=== PATIENT | male | born 1985 | race Two or more races ===

== ENCOUNTER 2017-09-30 10:21 | Emergency (ER) | payer OTHER ==
[~2017-09-30] VITALS: Ht 182.9 cm; Wt 86.8 kg
[~2017-09-30 10:21] MED LIST: AMOXICILLIN500 MG PO; IBUPROFEN200 M1 PO; KEFLEX500 MG PO; LIBRIUM25 MG PO; THIAMINE HCL100 MG PO; VISINE LONG LAS30 ML BOTH EYES
[2017-09-30 11:04] LABS: BASOPHIL (%) 0.5 % (0-1); EOSINOPHIL (%) 0.4 % (0-5); HEMATOCRIT 43.3 % (38.0-50.0); IMMATURE GRANULOCYTE (%) 0.5 % (0.0-0.7); LYMPHOCYTE (%) 25.2 % (15-42); MCH 31.8 PG (29.0-34.0); MCHC 34.6 G/DL (30.0-36.0); MCV 91.9 FL (86-99); MONOCYTE (%) 7.6 % (3-12); MONOCYTE COUNT 0.6 K/uL (0-0.8); NEUTROPHIL (%) 65.8 % (45-76); NEUTROPHIL COUNT 5.1 K/uL (1.8-6.4); PLATELET COUNT 303 K/uL (156-360); RBC DIS.WIDTH-CV 14.5 % (11.8-14.6); RBC DIS.WIDTH-SD 48.8 % (39-53); RED BLOOD COUNT 4.71 M/uL (4.00-5.50); WHITE BLOOD COUNT 7.7 K/uL (4.1-10.2)
[2017-09-30 11:12] LABS: CHLORIDE 103 mEq/L (99-109); POTASSIUM 4.3 mEq/L (3.7-5.4); SODIUM 142 mEq/L (136-147)
[2017-09-30 11:14] LABS: GLUCOSE 95 mg/dL (70-99)
[2017-09-30 11:15] LABS: APPEARANCE SL.HAZY ((CLEAR)); BILIRUBIN NEGATIVE; BLOOD NEGATIVE; COLOR AMBER ((YELLOW)); GLUCOSE (STRIP) NEGATIVE; KETONES NEGATIVE; LEUKOCYTES TRACE; NITRITE NEGATIVE; PROTEIN (STRIP) 30; SPECIFIC GRAVITY 1.024 (1.000-1.030)
[2017-09-30 11:18] LABS: CREATININE 0.8 mg/dL (0.6-1.3); GFR ESTIMATE (CALCULATED) > 59 mL/min/ (58.99-99999); UREA NITROGEN (BUN) 6 mg/dL (9-23)
[2017-09-30 11:18] LABS: BACTERIA NONE SEEN /HPF; EPITHELIAL CELLS RARE /HPF; HYALINE CASTS 0-5 /LPF; MUCUS 1+ /LPF; RED BLOOD CELLS 0-5 /HPF (0-5); UCUL ADDED? YES
[2017-09-30 12:51] VITALS: BP 142/90
== END 2017-09-30 12:52 | disposition home or self-care (01) ==
LOC: RME 10:21 → EME 10:21 → RME 12:52
PROVIDERS: Emergency Medicine
DX: N45.1 Epididymitis (principal); F17.200 Nicotine dependence, unspecified, uncomplicated
CPT/HCPCS: 76870; 80048; 81003; 85025; 87086; 99281; 99283; J0696

== ENCOUNTER 2017-11-27 12:27 | Emergency (ER) | payer OTHER ==
[~2017-11-27] VITALS: Ht 182.9 cm; Wt 83.7 kg
[2017-11-27 13:08] LABS: HEMATOCRIT 42.8 % (38.0-50.0); HEMOGLOBIN 15.9 G/DL (12.5-16.6); MCH 32.8 PG (29.0-34.0); MCHC 37.1 G/DL (30.0-36.0); MCV 88.2 FL (86-99); PLATELET COUNT 208 K/uL (156-360); RBC DIS.WIDTH-CV 13.5 % (11.8-14.6); RBC DIS.WIDTH-SD 43.8 % (39-53); RED BLOOD COUNT 4.85 M/uL (4.00-5.50); WHITE BLOOD COUNT 7.7 K/uL (4.1-10.2)
[2017-11-27 13:12] LABS: ALBUMIN 4.6 g/dL (3.2-4.8); CHLORIDE 102 mEq/L (99-109); POTASSIUM 3.7 mEq/L (3.7-5.4); SODIUM 140 mEq/L (136-147)
[2017-11-27 13:15] LABS: GLUCOSE 102 mg/dL (70-99)
[2017-11-27 13:16] LABS: TOTAL BILIRUBIN 0.7 mg/dL (0.0-1.0)
[2017-11-27 13:17] LABS: SERUM ETHYL ALCOHOL 368 mg/dL
[2017-11-27 13:18] LABS: ALKALINE PHOSPHATASE 102 IU/L (3-129); CREATININE 0.9 mg/dL (0.6-1.3); GFR ESTIMATE (CALCULATED) > 59 mL/min/ (58.99-99999)
[2017-11-27 13:19] LABS: UREA NITROGEN (BUN) 12 mg/dL (9-23)
[2017-11-27 13:20] LABS: AST (GOT) 63 IU/L (2-34)
[2017-11-27 13:21] LABS: ALT (GPT) 49 IU/L (3-49)
[2017-11-27 13:22] LABS: LIPASE 120 U/L (1.0-51.0)
[2017-11-27 15:12] VITALS: BP 130/77
== END 2017-11-27 15:19 | disposition home or self-care (01) ==
LOC: EME 12:27
PROVIDERS: Emergency Medicine
DX: F10.129 Alcohol abuse with intoxication, unspecified (principal); F17.200 Nicotine dependence, unspecified, uncomplicated; Y90.8 Blood alcohol level of 240 mg/100 ml or more; Z86.69 Personal history of other diseases of the nervous system and sense organs
CPT/HCPCS: 74177; 80053; 83690; 85027; 93005; 99281; 99284; G0480; J2270; J2405; J7030